=== PATIENT | female | born 1965 | race Caucasian/White ===

== ENCOUNTER 2016-12-01 12:21 | Emergency (ER) | payer OTHER ==
[2016-12-01 13:00] LABS: BASOPHIL % 0.6 % (0-2); PLATELET COUNT 302 x10^3mcL (130-400); RED CELL DISTRIBUTION WIDTH 13.1 % (11.5-14.5)
[2016-12-01 13:07] LABS: CALCIUM 8.9 mg/dL (8.5-10.1); CHLORIDE SERUM 110 mmol/L (98-107); CREATININE SERUM 0.8 mg/dL (0.6-1.0); GFR1 > 60 mL/min; GLUCOSE SERUM 87 mg/dL (74-106); POTASSIUM SERUM 3.8 mmol/L (3.5-5.1); SODIUM SERUM 147 mmol/L (136-145)
[2016-12-01 13:13] LABS: ALBUMIN 3.9 g/dL (3.4-5.0); ALKALINE PHOSPHATASE 76 U/L (46-116); ALT/SGPT 38 U/L (14-59); AST/SGOT 31 U/L (15-37); BILIRUBIN TOTAL 0.26 mg/dL (0.20-1.00); TOTAL PROTEIN, SERUM 7.6 g/dL (6.4-8.2)
[2016-12-01 14:13] VITALS: BP 148/96
== END 2016-12-01 14:13 | disposition home or self-care (01) ==
LOC: ED 12:21
PROVIDERS: Emergency Medicine
DX: I10 Essential (primary) hypertension (principal)
CPT/HCPCS: 36415

== ENCOUNTER → 2016-12-13 | Outpatient (CLI) | payer OTHER ==
[2016-12-13 12:12] LABS: BASOPHIL % 0.4 % (0-2); PLATELET COUNT 270 x10^3mcL (130-400); RED CELL DISTRIBUTION WIDTH 13.2 % (11.5-14.5)
[2016-12-13 12:21] LABS: T3 TOTAL 1.38 ng/mL
[2016-12-13 12:23] LABS: ALKALINE PHOSPHATASE 78 U/L (46-116); ALT/SGPT 42 U/L (14-59); AST/SGOT 44 U/L (15-37); CHLORIDE SERUM 106 mmol/L (98-107); CHOLESTEROL 197 mg/dL (<200); CREATININE SERUM 0.8 mg/dL (0.6-1.0); GFR1 > 60 mL/min; GLUCOSE SERUM 90 mg/dL (74-106); POTASSIUM SERUM 3.7 mmol/L (3.5-5.1); SODIUM SERUM 143 mmol/L (136-145); TOTAL PROTEIN, SERUM 7.9 g/dL (6.4-8.2); TRIGLYCERIDES 92 mg/dL (<150)
[2016-12-13 12:29] LABS: CHOLESTEROL/HDL RATIO 3.2; HDL CHOLESTEROL 62 mg/dL (40-60)
[2016-12-13 12:34] LABS: FREE T4 1.03 ng/dL (0.76-1.46); FREE THYROXINE INDEX 2.9 ug/dL (1.4-4.5); T4(THYROXINE) 9.1 ug/dL (4.7-13.3)
== END ==
LOC: LB 07:32
PROVIDERS: Family Medicine
DX: I10 Essential (primary) hypertension (principal)
CPT/HCPCS: 84439

== ENCOUNTER → 2016-12-15 | Outpatient (CLI) | payer OTHER | END | disposition home or self-care (01) | LOC: MA 09:22 | PROC: BW4GZZZ Ultrasonography of Pelvic Region (ICD-10-PCS; principal; 2016-12-15) | PROC: BH02ZZZ Plain Radiography of Bilateral Breasts (ICD-10-PCS; 2016-12-15) | DX: Z12.31 Encounter for screening mammogram for malignant neoplasm of breast (principal); R10.2 Pelvic and perineal pain | CPT/HCPCS: G0202 ==

== ENCOUNTER → 2017-04-12 | Outpatient (CLI) | payer OTHER | END | disposition home or self-care (01) | LOC: US 10:18 | PROC: BU4CZZZ Ultrasonography of Uterus and Ovaries (ICD-10-PCS; principal; 2017-04-12) | DX: N83.209 Unspecified ovarian cyst, unspecified side (principal) ==

== ENCOUNTER → 2017-12-22 | Outpatient (CLI) | payer OTHER | END | disposition home or self-care (01) | LOC: RD 11:26 | DX: M54.5 Low back pain (principal) ==

== ENCOUNTER 2018-01-04 05:23 | Emergency (ER) | payer OTHER ==
[~2018-01-04] VITALS: Ht 157.5 cm; Wt 65.5 kg
[2018-01-04 05:28] VITALS: Ht 157.5 cm; Wt 65.5 kg
[2018-01-04 06:39] LABS: BASOPHIL % 0.3 % (0-2); PLATELET COUNT 252 x10^3mcL (130-400); RED CELL DISTRIBUTION WIDTH 13.3 % (11.5-14.5)
[2018-01-04 06:46] LABS: CALCIUM 8.5 mg/dL (8.5-10.1); CARBON DIOXIDE 25.5 mmol/L (21-32); CHLORIDE SERUM 107 mmol/L (98-107); CREATININE SERUM 0.8 mg/dL (0.6-1.0); GFR1 > 60 mL/min; GLUCOSE SERUM 96 mg/dL (74-106); POTASSIUM SERUM 3.6 mmol/L (3.5-5.1); SODIUM SERUM 138 mmol/L (136-145)
[2018-01-04 06:51] LABS: ALBUMIN 3.6 g/dL (3.4-5.0); ALKALINE PHOSPHATASE 84 U/L (46-116); ALT/SGPT 81 U/L (14-59); AST/SGOT 58 U/L (15-37); BILIRUBIN TOTAL 0.32 mg/dL (0.20-1.00); TOTAL PROTEIN, SERUM 7.4 g/dL (6.4-8.2)
[2018-01-04 07:09] VITALS: BP 153/97
== END 2018-01-04 07:25 | disposition home or self-care (01) ==
LOC: ED 05:23
PROVIDERS: Emergency Medicine
DX: J20.9 Acute bronchitis, unspecified (principal); I10 Essential (primary) hypertension; Z88.0 Allergy status to penicillin
CPT/HCPCS: 36415; Q0092

== ENCOUNTER → 2018-04-08 | Outpatient (CLI) | payer OTHER | END | disposition home or self-care (01) | LOC: RD 11:27 | DX: M25.572 Pain in left ankle and joints of left foot (principal); M25.512 Pain in left shoulder; R07.81 Pleurodynia ==

== ENCOUNTER 2018-06-10 13:23 | Emergency (ER) | payer OTHER ==
[~2018-06-10] VITALS: Ht 157.5 cm; Wt 66.2 kg
[2018-06-10 13:29] VITALS: Ht 157.5 cm; Wt 66.2 kg
[2018-06-10 13:56] LABS: BASOPHIL % 0.4 % (0-2); PLATELET COUNT 297 x10^3mcL (130-400); RED CELL DISTRIBUTION WIDTH 12.9 % (11.5-14.5)
[2018-06-10 14:12] LABS: CALCIUM 8.9 mg/dL (8.5-10.1); CARBON DIOXIDE 25.5 mmol/L (21-32); CREATININE SERUM 1.2 mg/dL (0.6-1.0); POTASSIUM SERUM 3.8 mmol/L (3.5-5.1)
[2018-06-10 14:17] LABS: ALBUMIN 3.9 g/dL (3.4-5.0); BILIRUBIN TOTAL 0.1 mg/dL (0.20-1.00); TOTAL PROTEIN, SERUM 7.7 g/dL (6.4-8.2)
[2018-06-10 15:38] VITALS: BP 156/115
== END 2018-06-10 15:38 | disposition home or self-care (01) ==
LOC: ED 13:23
PROVIDERS: Emergency Medicine
DX: F41.9 Anxiety disorder, unspecified (principal); R20.2 Paresthesia of skin; I10 Essential (primary) hypertension; Z88.0 Allergy status to penicillin; Z98.890 Other specified postprocedural states
CPT/HCPCS: 36415

== ENCOUNTER → 2018-07-07 | Outpatient (CLI) | payer OTHER | END | disposition home or self-care (01) | LOC: MA 09:03 | PROC: BW4GZZZ Ultrasonography of Pelvic Region (ICD-10-PCS; principal; 2018-07-07) | PROC: BH02ZZZ Plain Radiography of Bilateral Breasts (ICD-10-PCS; 2018-07-07) | DX: Z12.31 Encounter for screening mammogram for malignant neoplasm of breast (principal); R10.2 Pelvic and perineal pain | CPT/HCPCS: 77067 ==

== ENCOUNTER → 2018-10-11 | Outpatient (CLI) | payer OTHER | END | disposition home or self-care (01) | LOC: RD 11:47 | DX: M72.2 Plantar fascial fibromatosis (principal); M79.606 Pain in leg, unspecified ==

== ENCOUNTER 2019-01-25 06:12 | Inpatient (IN) | payer OTHER ==
[2019-01-24 09:53] LABS: BASOPHIL % 0.9 % (0-2); PLATELET COUNT 283 x10^3mcL (130-400)
[2019-01-24 09:54] LABS: CALCIUM 8.2 mg/dL (8.5-10.1); CARBON DIOXIDE 26.9 mmol/L (21-32); CHLORIDE SERUM 107 mmol/L (98-107); CREATININE SERUM 0.8 mg/dL (0.6-1.0); GFR1 > 60 mL/min; GLUCOSE SERUM 110 mg/dL (74-106); POTASSIUM SERUM 3.4 mmol/L (3.5-5.1); SODIUM SERUM 143 mmol/L (136-145)
[~2019-01-25] VITALS: Ht 157.5 cm; Wt 65.8 kg
[2019-01-25 06:25] VITALS: BP 129/87
[2019-01-25 10:08] VITALS: BP 110/77
[2019-01-25 16:13] VITALS: BP 114/67
[2019-01-25 20:14] VITALS: BP 117/73
[2019-01-26 06:25] LABS: BASOPHIL % 0.3 % (0-2); PLATELET COUNT 303 x10^3mcL (130-400)
[2019-01-26 07:59] VITALS: BP 125/79
[2019-01-26 17:04] VITALS: BP 120/70
[2019-01-26 20:44] VITALS: BP 114/70
[2019-01-27 05:45] VITALS: BP 138/92
[2019-01-27 08:36] VITALS: BP 105/70
[2019-01-27 16:40] VITALS: BP 128/83
[2019-01-27 21:07] VITALS: BP 117/74
[2019-01-28 06:13] VITALS: BP 102/63
[2019-01-28 08:01] VITALS: BP 115/75
[2019-01-28 09:11] VITALS: BP 115/75
[2019-01-28 09:12] VITALS: BP 115/75
[2019-01-28 16:35] VITALS: BP 113/75
== END 2019-01-28 18:00 | disposition home or self-care (01) | DRG 743 ==
LOC: MU 06:12
PROVIDERS: ADMIT Obstetrics & Gynecology
PROC: 0UB20ZZ Excision of Bilateral Ovaries, Open Approach (ICD-10-PCS; 2019-01-25)
PROC: 0UB70ZZ Excision of Bilateral Fallopian Tubes, Open Approach (ICD-10-PCS; 2019-01-25)
PROC: 0UT90ZZ Resection of Uterus, Open Approach (ICD-10-PCS; principal; 2019-01-25 07:30)
DX: N95.0 Postmenopausal bleeding (principal); Z88.0 Allergy status to penicillin; I10 Essential (primary) hypertension
CPT/HCPCS: G0378; J0330; J1170; J2250; J2270; J2405; J2704; J2710; J3010; J3490; J7030; J7050; J7120

== ENCOUNTER → 2019-02-20 | Outpatient (CLI) | payer OTHER ==
[2019-02-20 09:15] LABS: UA SPECIFIC GRAVITY <=1.005 (1.005-1.035); microscopic required? YES; urine erythrocyte NEGATIVE (NEGATIVE)
[2019-02-20 09:21] LABS: BASOPHIL % 0.5 % (0-2); PLATELET COUNT 315 x10^3mcL (130-400); RED CELL DISTRIBUTION WIDTH 13.3 % (11.5-14.5)
[2019-02-20 09:32] LABS: ALKALINE PHOSPHATASE 101 U/L (46-116); ALT/SGPT 80 U/L (14-59); AST/SGOT 42 U/L (15-37); BILIRUBIN TOTAL 0.22 mg/dL (0.20-1.00); CALCIUM 8.9 mg/dL (8.5-10.1); CARBON DIOXIDE 26.9 mmol/L (21-32); CHLORIDE SERUM 105 mmol/L (98-107); CREATININE SERUM 0.8 mg/dL (0.6-1.0); GFR1 > 60 mL/min; GLUCOSE SERUM 96 mg/dL (74-106); HDL CHOLESTEROL 50 mg/dL (40-60); SODIUM SERUM 142 mmol/L (136-145); TOTAL PROTEIN, SERUM 8.1 g/dL (6.4-8.2); TRIGLYCERIDES 184 mg/dL (<150)
[2019-02-20 10:04] LABS: CHOLESTEROL 233 mg/dL (<200); CHOLESTEROL/HDL RATIO 4.7
== END | disposition home or self-care (01) ==
LOC: LB 08:42
DX: Z00.00 Encounter for general adult medical examination without abnormal findings (principal); E55.9 Vitamin D deficiency, unspecified
CPT/HCPCS: 84439

== ENCOUNTER 2019-09-07 04:46 | Emergency (ER) | payer OTHER ==
[~2019-09-07] VITALS: Ht 157.5 cm; Wt 65.8 kg
[2019-09-07 04:51] VITALS: Ht 157.5 cm; Wt 65.8 kg
[2019-09-07 06:09] VITALS: BP 146/90
== END 2019-09-07 06:09 | disposition home or self-care (01) ==
LOC: ED 04:46
DX: K08.89 Other specified disorders of teeth and supporting structures (principal); R51 Headache
CPT/HCPCS: J1885

== ENCOUNTER → 2019-12-27 | Outpatient (CLI) | payer OTHER ==
[2019-12-28 06:50] LABS: BASOPHIL % 0.4 % (0-2); PLATELET COUNT 303 x10^3mcL (130-400)
[2019-12-28 07:37] LABS: ALBUMIN 3.9 g/dL (3.4-5.0); ALKALINE PHOSPHATASE 94 U/L (46-116); ALT/SGPT 67 U/L (14-59); AST/SGOT 40 U/L (15-37); CALCIUM 8.9 mg/dL (8.5-10.1); CARBON DIOXIDE 29.3 mmol/L (21-32); CHLORIDE SERUM 104 mmol/L (98-107); CHOLESTEROL 192 mg/dL (<200); CHOLESTEROL/HDL RATIO 3.4; GFR1 > 60 mL/min; GLUCOSE SERUM 101 mg/dL (74-106); HDL CHOLESTEROL 56 mg/dL (40-60); SODIUM SERUM 139 mmol/L (136-145); TOTAL PROTEIN, SERUM 7.7 g/dL (6.4-8.2); TRIGLYCERIDES 124 mg/dL (<150)
== END | disposition home or self-care (01) ==
LOC: LB 07:58
PROVIDERS: ATTEND Student in an Organized Health Care Education/Training Program
DX: E11.9 Type 2 diabetes mellitus without complications (principal)

== ENCOUNTER → 2020-02-01 | Outpatient (CLI) | payer OTHER | END | disposition home or self-care (01) | LOC: US 06:44 | PROC: BW40ZZZ Ultrasonography of Abdomen (ICD-10-PCS; principal; 2020-02-01) | DX: K76.0 Fatty (change of) liver, not elsewhere classified (principal) ==

== ENCOUNTER → 2020-02-16 | Outpatient (CLI) | payer OTHER ==
[2020-02-16 08:11] LABS: microscopic required? NO
[2020-02-16 09:11] LABS: urine erythrocyte NEGATIVE (NEGATIVE)
== END | disposition home or self-care (01) ==
LOC: LB 07:53
PROVIDERS: ATTEND Obstetrics & Gynecology
DX: R33.9 Retention of urine, unspecified (principal)

== ENCOUNTER 2020-03-21 06:12 | Day surgery (SDC) | payer OTHER ==
[~2020-03-21] VITALS: Ht 157.5 cm; Wt 67.1 kg
[2020-03-21 06:40] VITALS: BP 132/81
[2020-03-21 11:33] VITALS: BP 148/89
== END 2020-03-21 11:30 | disposition home or self-care (01) ==
LOC: GI 06:12 → OR 09:00 → GI 09:00
PROVIDERS: ATTEND Internal Medicine Gastroenterology
DX: Z12.11 Encounter for screening for malignant neoplasm of colon (principal); K57.30 Diverticulosis of large intestine without perforation or abscess without bleeding; Z90.710 Acquired absence of both cervix and uterus
CPT/HCPCS: 45378; J1200; J1610; J2250; J2310; J3010; J3490

== ENCOUNTER 2020-05-14 00:56 | Emergency (ER) | payer OTHER, SELFPAY ==
[~2020-05-14] VITALS: Ht 157.5 cm; Wt 74.8 kg
[2020-05-14 01:06] VITALS: Ht 157.5 cm; Wt 74.8 kg
[2020-05-14 02:38] VITALS: BP 130/88
== END 2020-05-14 02:38 | disposition home or self-care (01) ==
LOC: ED 00:56
DX: U07.1 COVID-19 (principal); Z88.0 Allergy status to penicillin; I10 Essential (primary) hypertension; Z90.710 Acquired absence of both cervix and uterus
CPT/HCPCS: J1885; U0003

== ENCOUNTER → 2020-07-20 | Outpatient (CLI) | payer OTHER | END | disposition home or self-care (01) | LOC: RD 06:03 | PROVIDERS: ATTEND Student in an Organized Health Care Education/Training Program | DX: M54.6 Pain in thoracic spine (principal) ==